=== PATIENT | female | born 1950 | race African-American/Black ===

== ENCOUNTER 2016-07-24 09:32 | Emergency (ER) | payer MEDICARE ==
[~2016-07-24 09:32] MED LIST: ACETAMINOPHEN PO; ADVAIR 250-501 EACH IH; ALBUTEROL17 G1 IH; AUGMENTIN PO; HCTZ PO; HYDROCHLOROTHIA25 MG PO; KETOPROFEN PO; LISINOPRIL PO; LISINOPRIL10 MG PO; LOPRESSOR PO; MEDROL DOSEPAK4 MG PO; NO MEDICATIONS; NORVASC PO; PRILOSEC PO; PROCARDIA XL PO; ROBITUSSIN A-C-S1 ML PO; VOLTAREN50 MG PO
== END 2016-07-24 10:45 | disposition home or self-care (01) ==
LOC: CED 09:32
DX: M10.9 Gout, unspecified (principal); I10 Essential (primary) hypertension
CPT/HCPCS: 96372; 99283; J1885